=== PATIENT | male | born 1985 | race Caucasian/White ===

== ENCOUNTER 2016-06-02 12:10 | Emergency (ER) | payer OTHER ==
[~2016-06-02] VITALS: Ht 177.8 cm; Wt 95.5 kg
[2016-06-02 12:12] VITALS: BP 150/102; PULSE 87; RESP 18; O2SAT 97
--- NOTE | 2016-06-02 12:29 | ED.REPORT ---
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 on right posterior calf. dog was tied up in his yard, walking past dog. pit bull unknown if up to date on shots. Tdap was 2 years ago. primary care is [facility], normally healthy. 07/03 Nursing Notes Stated Complaint: DOG BITE ON RIGHT CALF Chief Complaint: Laceration Nursing Notes Reviewed: Yes Allergies: Coded Allergies: No Known Allergies (Unverified , 06/02/16) General Time Seen by MD: 12:29 Chief Complaint Dog bite Hx Obtained From: Patient Onset Occurred: Just prior to arrival Severity: Current: Pain level 5 out of 10 Risk Factors Rabies Risk Stratification Dog - low risk Domestic animal Vaccinations up to date Bite Infection Risk: Below knee bite Past Medical History Past Medical History Denies: Asthma, Diabetes mellitus Past Surgical History denies Smoking History Former Smoker (quit 10 years ago) Social History Alcohol Use: Denies alcohol use Drug Use: Denies drug use Occupation single , owns a business in [facility] 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/2016 Ambulatory Status Independent Review of Systems Basic Review of Systems Eyes: Vision NL, No discharge Hematologic: No bleeding, No bruising Psychiatric: Normal thought content Physical Exam Vital Signs Vital Signs (First) Date Time Temp Pulse Resp B/P Pulse Ox O2 Delivery O2 Flow Rate FiO2 06/02/16 12:12 36.7 87 18 150/102 97 Room Air Initial VS: Reviewed, Vital signs normal Head / Eyes: Atraumatic, Normocephalic, PERRL ENT: Mucous membranes moist, Conjunctiva normal, No scleral icterus Neck: Supple, Non-tender, Full range of motion Respiratory: Breath sounds normal, Clear to auscultation, No respiratory distress Cardiovascular: Regular rate & rhythm, Intact distal pulses Abdomen / GI: Soft, Non-tender, No guarding, No rebound, No distention Back: No CVA tenderness Lymphatic: No lymphadenopathy Extremities: Vascular intact, Neuro intact, No swelling, No tenderness Psychiatric: Mood/affect normal, Behavior normal, Normal thought content General/Constitutional: Awake, Alert, No acute distress, Well appearing, Well developed Rash / Lesion Notes: dog bite on right posterior calf Respiratory / Chest: Atraumatic, Breath sounds NL, Breath sounds = bilat, No respiratory distress Cardiovascular: Heart rate NL, Regular rhythm, Heart sounds NL, No gallop right leg has dog bite with semi circular flap. No extension into muscle or tendon. Movement of foot intact. Cap refill less than 2 seconds Procedures Laceration Management Time: 12:45 Procedure Performed by: Allied health pract Consent / Setup / Site Prep: Informed consent provided, Consent from patient Location of Wound: right posterior calf Wound Length: 3 cm Local Anesthesia: Bupivacaine 0.5%, 4cc, 27g needle Digital Block: No Wound Preparation: Normal saline Debridement: None Irrigation: 250 cc Undermining / Margins: Flaps aligned Repair Skin: ___ O (5), Nylon # Sutures - Skin: 5 Suture Technique: Simple (1), Mattress (4) Post-Procedure / Complications: Antibiotic oint applied, Dressing applied, No complications, Condition improved, Tolerated procedure well, Patient stable Re-Eval/Medical Decision Med Decision/Clinical Course 30 year old male presents for evualation for dog bite. Dog is a domestic animal and is up to date on all shots. Patient had recent tdap 2 years ago. Flap laceration repaired without incident. Range of motion intact. no sign of compartment syndrome or tendon injury Discharge & Departure Impression: Primary Impression: Laceration Additional Impression: Dog bite Encounter type: initial encounter Qualified Code: W54.0XXA - Bitten by dog, initial encounter Disposition: Home Patient Instructions: Animal Bite (ED), Laceration (ED) Additional Instructions: The laceration has been repaired. You have been given the first dose of antibiotics in the ER. Continue with augmentin in the am and pm for 7 days. Apply bacitracin daily to the wound. Sutures out in 14 days here. Use ibuprofen 800 mg 3 times a day for 5 days. Can use hydrocodone 1 up to 2 times a day as needed for severe unrelenting pain. #10. I am sorry this happened. Referrals: Kike Narayanan MD EDSupervising Provider for APC: Yamil Brewster MD copies to: Kike Narayanan MD, Sue ARNP Jun 02, 2016 12:29
[2016-06-02] MEDS ORDERED: Amoxicillin-Clav 875-125 mg Tablet PO ONE (12:40)
[2016-06-02 13:30] VITALS: BP 135/85; PULSE 78; RESP 6; O2SAT 78
== END 2016-06-02 13:13 | disposition home or self-care (01) ==
LOC: SED 12:10
DX: S81.851A Open bite, right lower leg, initial encounter (principal); W54.0XXA Bitten by dog, initial encounter; Y93.01 Activity, walking, marching and hiking; Y92.007 Garden or yard of unspecified non-institutional (private) residence as the place of occurrence of the external cause; Y99.8 Other external cause status; Z87.891 Personal history of nicotine dependence